=== PATIENT | female | born 1930 | race Caucasian/White ===

== ENCOUNTER 2016-12-07 14:02 | Emergency (ER) | payer MEDICARE, BC ==
[~2016-12-07] VITALS: Ht 152.4 cm; Wt 60.9 kg
[2016-12-07 15:06] VITALS: BP 142/84; PULSE 83; RESP 18; TEMP 98.1; O2SAT 96
[2016-12-07] MEDS ORDERED: METO25TA3 PO (15:06)
--- NOTE | 2016-12-07 15:19 | PD ---
HPI Chief Complaint: Chest Pain Time Seen by Provider: 15:14 Travel History International Travel<30 days: No Contact w/Intl Traveler<30days: No Traveled to known affect area: No History of Present Illness HPI 86-year-old female with history of hypertension, presents to the ER today because she states that she was vacuuming 2 days ago, felt a pop in her anterior chest and has been having pain especially with movement and deep breaths in the anterior chest. She states that her current pain is a 5 out of 10. She was seen by Dr. Roberts in the clinic and had a chest x-ray done which shows a sternal fracture. She states she was sent in by Dr. Roberts for further evaluation. She denies any shortness of breath, fevers, coughing, or other symptoms. Modifying Factors: None Associated Signs & Symptoms: Sternal fracture, chest pain Risk Factors: None PFSH Past Medical History Hypertension: Yes Influenza Vaccination: Yes ?: Not Past Surgical History Tonsillectomy: Yes Social History Alcohol Use: Yes ("OCCASIONALLY") Tobacco Use: No Substance Use: No Allergies-Medications (Allergen,Severity, Reaction): Coded Allergies: Penicillin (Verified Allergy, Unknown, as a child, 12/07/16) Reported Meds & Prescriptions Reported Meds & Active Scripts Active Reported Metoprolol Tartrate 25 Mg Tab 25 Mg PO DAILY Review of Systems Except as stated in HPI: all other systems reviewed are Neg Physical Exam Narrative GENERAL: Pleasant well-developed elderly white female patient currently not in acute distress. Awake and oriented 3. SKIN: Warm and dry. HEAD: Atraumatic. Normocephalic. EYES: Pupils equal and round. No scleral icterus. No injection or drainage. ENT: No nasal bleeding or discharge. Mucous membranes pink and moist. NECK: Trachea midline. No JVD. CARDIOVASCULAR: Regular rate and rhythm. No murmur appreciated. CHEST: Tender to palpation of the area around the mid sternum. No retractions or use of accessory muscles. RESPIRATORY: No accessory muscle use. Clear to auscultation. Breath sounds equal bilaterally. GASTROINTESTINAL: Abdomen soft, non-tender, nondistended. Hepatic and splenic margins not palpable. MUSCULOSKELETAL: No obvious deformities. No clubbing. No cyanosis. No edema. NEUROLOGICAL: Awake and alert. No obvious cranial nerve deficits. Motor grossly within normal limits. Normal speech. PSYCHIATRIC: Appropriate mood and affect; insight and judgment normal. Data Data Last Documented VS Vital Signs Date Time Temp Pulse Resp B/P Pulse Ox O2 Delivery O2 Flow Rate FiO2 12/07/16 16:36 84 18 136/78 96 Room Air 12/07/16 15:[address] Thorax/ Chest Wo Iv Contras (12/07/16 15:14) MDM Medical Decision Making Medical Screen Exam Complete: Yes Emergency Medical Condition: Yes Medical Record Reviewed: Yes Differential Diagnosis Sternal fracturerule out other acute injuries Narrative Course CAT scan did not show any obvious displaced sternal fracture any signs of other acute processes. At this point, patient is doing well in the ER, talking to me , ambulatory, vital signs are stable. The patient regarding the limits of CAT scans and x-rays and I have talked her about the fact that we cannot rule out every acute issue by do not see any obvious acute issues and my plan would be to release her. Return for any worsening in discomfort, shortness of breath, or new symptoms as needed. I have offered to give her pain relief but she is declining at this time. The plan has been discussed with her and she states understanding. She will need to follow-up with her primary care physician regarding pulmonary nodules found as an incidental on CAT scan which will need to be followed out in another 6 months to 12 months. Diagnosis Primary Impression: Sternal pain Disposition: 01 DISCHARGE HOME Condition: Stable Patricia Cai MD Dec 07, 2016 15:19
[2016-12-07 16:36] VITALS: BP 136/78; PULSE 84; RESP 18; O2SAT 96
--- NOTE | 2016-12-07 16:40 | RADHPO ---
EXAM DATE/TIME: 12/07/2016 16:03 [facility] COMPARISON: No previous studies available for comparison. INDICATIONS : Anterior chest pain. RADIATION DOSE: 7.42 CTDIvol (mGy) MEDICAL HISTORY : Hypertension. SURGICAL HISTORY : Tonsillectomy. ENCOUNTER: Initial ACUITY: 2 days PAIN SCALE: 5/10 LOCATION: Chest sternal TECHNIQUE: Volumetric scanning of the chest was performed. Using automated exposure control and adjustment of t he mA and/or kV according to patient size, radiation dose was kept as low as reasonably achievable to obtain optimal diagnostic quality images. FINDINGS: There is no evidence of displaced sternal fracture. Degenerative changes and scoliosis of the thorac ic spine as well as kyphosis of the thoracic spine are noted. There is a large hiatal hernia contain ing half of the stomach. Coronary artery calcifications are noted. No mediastinal, hilar or axillar y lymphadenopathy is noted. No infiltrate or congestion is noted. There is a nodular density within the left lower lobe laterally measuring 5 mm which is indeterminate. Follow-up CT of the chest in 6 to 12 months is recommended. There is no evidence of pneumothorax. CONCLUSION: 1. 5 mm noncalcified nodule within the left lower lobe laterally which is indeterminate. Follow-up C T of the chest is 6-12 months is recommended to confirm stability. 2. Large hiatal hernia. 3. Coronary artery calcifications. 4. Degenerative changes, scoliosis and kyphosis of the thoracic spine. Mario Ramachandran MD on December 07, 2016 at 16:29 Board Certified Radiologist. This report was verified electronically.
== END 2016-12-07 17:17 | disposition home or self-care (01) ==
LOC: PHED 14:02
DX: R07.9 Chest pain, unspecified (principal); I10 Essential (primary) hypertension; R91.1 Solitary pulmonary nodule
CPT/HCPCS: 71250